=== PATIENT | female | born 1990 | race Caucasian/White ===

== ENCOUNTER 2018-08-26 21:49 | Emergency (ER) | payer OTHER ==
[~2018-08-26] VITALS: Ht 160 cm; Wt 95.0 kg
[~2018-08-26 21:49] MED LIST: NOCURR
[2018-08-26] MEDS ORDERED: PERTUSS(ACELL),DIPH,TET VAC/PF 0.5 ML VIAL IM ONE (23:00)
[2018-08-26] MEDS ORDERED: BACITRACIN 0.9 GM PACKET OINTMENT TP ONE (23:00)
[2018-08-26] MEDS ORDERED: HYDROCODONE/ACETAMINOPHEN 5-325 MG TABLET PO ONE (23:30)
[2018-08-26] MEDS ORDERED: IBUPROFEN 800 MG TABLET PO ONE (23:30)
[2018-08-27] VITALS: BP 127/88
== END 2018-08-27 00:37 | disposition home or self-care (01) ==
LOC: EMS 21:51
DX: S61.305A Unspecified open wound of left ring finger with damage to nail, initial encounter (principal); W22.8XXA Striking against or struck by other objects, initial encounter; Y93.89 Activity, other specified; Y92.89 Other specified places as the place of occurrence of the external cause; Y99.8 Other external cause status
CPT/HCPCS: 90471; 90715